=== PATIENT | male | born 1945 | race Caucasian/White ===

== ENCOUNTER 2017-01-18 02:51 | Emergency (ER) | payer BC, OTHER ==
[~2017-01-18] VITALS: Ht 170.2 cm; Wt 104.3 kg
[2017-01-18 02:51] VITALS: BP_SYST 161
[~2017-01-18 02:51] MED LIST: ALBU8.5H8 INH; AMLO2.5T2 PO; BUSP10TA3 PO; CLOP75TA2 PO; GABA300S PO; GLIP2.5T3 PO; LEVO500T20 PO; LISI-209 PO; METH4TAB3 PO; METO25TA3 PO; TEMA30CA5 PO; TIZA4TAB11 PO
[2017-01-18] MEDS ORDERED: TRAZ-123 PO (03:17)
[2017-01-18] MEDS ORDERED: LOSA25TA3 PO (03:17)
[2017-01-18] MEDS ORDERED: PRAV40TA PO (03:17)
[2017-01-18] MEDS ORDERED: GABA-531 PO (03:17)
[2017-01-18] MEDS ORDERED: NACL 0.9% 1,000 ML IV ONE (03:53)
[2017-01-18] MEDS ORDERED: ALBUTEROL SULFATE 0.083% 2.5 MG/3 ML VIAL.NEB IH ONE (04:00)
[2017-01-18] MEDS ORDERED: IPRATROPIUM BROM 0.5 MG/2.5 ML VIAL.NEB (ATROVENT) IH ONE (04:00)
[2017-01-18 04:43] LABS: BASOPHILS # (AUTO) 0.1 K/uL (0.0-0.2); BASOPHILS % (AUTO) 1.2 % (0.0-2.0); EOSINOPHILS # (AUTO) 0.3 K/uL (0.0-0.4); EOSINOPHILS % (AUTO) 3.3 % (0.0-4.0); HEMATOCRIT 39.5 % (36-54); HEMOGLOBIN 13.1 g/dL (14.0-18.0); LYMPHOCYTES # (AUTO) 1.9 K/uL (1.0-5.5); LYMPHOCYTES % (AUTO) 18.9 % (20.5-51.5); MEAN CORPUSCULAR HEMOGLOBIN 28 pg (27-31); MEAN CORPUSCULAR HGB CONC 33 % (32-36); MEAN CORPUSCULAR VOLUME 84 fL (79.0-98.0); MONOCYTES # (AUTO) 0.5 K/uL (0.0-1.0); MONOCYTES % (AUTO) 4.6 % (1.7-9.3); NEUTROPHILS # (AUTO) 7.3 K/uL (1.8-7.7); PLATELET COUNT (AUTO) 202 K/uL (130-430); RED BLOOD CELL COUNT(AUTO) 4.69 MIL/uL (4.2-6.2); RED CELL DISTRIBUTION WIDTH 12.9 % (9.0-15.0); WHITE BLOOD COUNT (AUTO) 10.1 K/uL (4.8-10.8)
[2017-01-18 04:55] LABS: ANION GAP 11 (5-15); CALCIUM 8.4 mg/dL (8.4-11.0); CHLORIDE 103 mmol/L (98-107); CREATININE 2.32 mg/dL (0.55-1.30); GLUCOSE 167 mg/dL (70-99); SODIUM SERUM 137 mmol/L (136-145); UREA NITROGEN, BLOOD 25 mg/dL (8-21)
[2017-01-18] MEDS ORDERED: cefTRIAXone 1 GM IVPB PREMIX 50 ML IV ONE (05:00)
[2017-01-18 05:02] LABS: ALANINE AMINOTRANSFERASE 21 U/L (12-78); ALBUMIN 3.5 g/dL (3.4-4.8); ASPARTATE AMINOTRANSFERASE 14 U/L (10-37); TOTAL BILIRUBIN 0.3 mg/dL (0.0-1.0)
[2017-01-18] MEDS ORDERED: AMOXICILLIN 500 MG CAPSULE PO ONE (05:45)
[2017-01-18] MEDS ORDERED: LevALBUTEROL HCL 1.25 MG/0.5 ML *CONC.* VIAL.NEB (XOPENEX CONC.) INH ONE (05:45)
[2017-01-18 06:24] VITALS: BP_SYST 154
== END 2017-01-18 06:05 | disposition home or self-care (01) ==
LOC: SED 02:51
DX: R06.02 Shortness of breath (principal); E11.9 Type 2 diabetes mellitus without complications; I10 Essential (primary) hypertension; Z86.73 Personal history of transient ischemic attack (TIA), and cerebral infarction without residual deficits; Z79.899 Other long term (current) drug therapy
CPT/HCPCS: 36415; 71010; 80053; 83605; 83880; 84484; 85025; 87040; 93005; 96361; 96365; 99285; J0696; J7030

== ENCOUNTER 2017-01-18 23:21 | Inpatient (IN) | payer OTHER ==
[~2017-01-18] VITALS: Ht 170.2 cm; Wt 88.0 kg
[~2017-01-18 23:21] MED LIST changes: +GABA-531 PO; +LOSA25TA3 PO; +PRAV40TA PO; +TRAZ-123 PO
[2017-01-18 23:22] VITALS: BP_SYST 165
[2017-01-18] MEDS ORDERED: IPRATROPIUM BROM 0.5 MG/2.5 ML VIAL.NEB (ATROVENT) IH ONE (23:45)
[2017-01-18] MEDS ORDERED: methylPREDNISolone SOD SUCC/PF 62.5 MG/ML VIAL IVP ONE (23:45)
[2017-01-18] MEDS ORDERED: MAGNESIUM SULFATE 1 GM in NS 50 ML IV ONE (23:45)
[2017-01-18] MEDS ORDERED: ALBUTEROL SULFATE 0.083% 2.5 MG/3 ML VIAL.NEB IH ONE (23:45)
[2017-01-19] VITALS (8 sets, daily range): BP systolic 103–143
[2017-01-19 00:12] LABS: BASOPHILS # (AUTO) 0.1 K/uL (0.0-0.2); BASOPHILS % (AUTO) 1.6 % (0.0-2.0); EOSINOPHILS # (AUTO) 0.4 K/uL (0.0-0.4); EOSINOPHILS % (AUTO) 5.1 % (0.0-4.0); HEMATOCRIT 40.8 % (36-54); HEMOGLOBIN 13.4 g/dL (14.0-18.0); LYMPHOCYTES # (AUTO) 0.9 K/uL (1.0-5.5); LYMPHOCYTES % (AUTO) 11.2 % (20.5-51.5); MEAN CORPUSCULAR HEMOGLOBIN 28 pg (27-31); MEAN CORPUSCULAR HGB CONC 33 % (32-36); MEAN CORPUSCULAR VOLUME 85 fL (79.0-98.0); MONOCYTES # (AUTO) 0.4 K/uL (0.0-1.0); NEUTROPHILS % (AUTO) 77.1 % (40.0-70.0); PLATELET COUNT (AUTO) 199 K/uL (130-430); RED BLOOD CELL COUNT(AUTO) 4.82 MIL/uL (4.2-6.2); WHITE BLOOD COUNT (AUTO) 7.8 K/uL (4.8-10.8)
[2017-01-19] MEDS ORDERED: cefTRIAXone 2 GM VIAL ONE (00:12)
[2017-01-19] MEDS ORDERED: FUROSEMIDE 40 MG/4 ML VIAL IVP ONE (00:15)
[2017-01-19 00:36] LABS: PROTHROMBIN TIME 10.6 SECS (9.5-12.5)
[2017-01-19] MEDS ORDERED: MAGNESIUM SULFATE 1 GM/2 ML VIAL ONE (00:58)
[2017-01-19] MEDS ORDERED: cefTRIAXone 1 GM IVPB PREMIX 50 ML IV ONE (01:15)
[2017-01-19 01:16] LABS: BILIRUBIN,URINE NEGATIVE (NEGATIVE); BLOOD, URINE 1+ (NEGATIVE); CLARITY/URINE CLEAR (CLEAR); COLOR,URINE YELLOW (YELLOW); GLUCOSE,URINE TRACE (NEGATIVE); KETONES,URINE NEGATIVE (NEGATIVE); LEUKOCYTE ESTERASE ,URINE NEGATIVE (NEGATIVE); NITRITE, URINE NEGATIVE (NEGATIVE); PH,URINE 5.5 (5.0-8.0); PROTEIN URINE 3+ (NEGATIVE); UROBILINOGEN,URINE 0.2 (0.2-1.0)
[2017-01-19 01:17] LABS: ANION GAP 11 (5-15); CALCIUM 8.2 mg/dL (8.4-11.0); CHLORIDE 101 mmol/L (98-107); CREATININE 2.15 mg/dL (0.55-1.30); GLUCOSE 202 mg/dL (70-99); POTASSIUM 4.4 mmol/L (3.5-5.1); SODIUM SERUM 132 mmol/L (136-145); UREA NITROGEN, BLOOD 21 mg/dL (8-21)
[2017-01-19 01:21] LABS: ALANINE AMINOTRANSFERASE 17 U/L (12-78); ALBUMIN 3.2 g/dL (3.4-4.8); ASPARTATE AMINOTRANSFERASE 14 U/L (10-37); TOTAL BILIRUBIN 0.2 mg/dL (0.0-1.0)
[2017-01-19 01:30] LABS: BACTERIA,URINE RARE /HPF (None Seen); RBC,URINE 0-3 /HPF (0-3); WBC,URINE 0-3 /HPF (0-3)
[2017-01-19] MEDS ORDERED: FLU VACC QS 2017-18(36MOS+)/PF 0.5 ML/SYR SYRINGE I.M. PRN (02:45)
[2017-01-19] MEDS ORDERED: FUROSEMIDE 20 MG/2 ML VIAL IVP SCH (09:00)
[2017-01-19] MEDS ORDERED: DEXTROSE 50% JECT 50 ML DISP.SYRIN IVP PRN (10:30)
[2017-01-19] MEDS ORDERED: IPRATROPIUM BROM 0.5 MG/2.5 ML VIAL.NEB (ATROVENT) INH PRN (10:30)
[2017-01-19] MEDS: AZITHROMYCIN 500 MG in NS 250 ML IV SCH ×2 (10:30→11:24)
[2017-01-19] MEDS ORDERED: methylPREDNISolone SOD SUCC/PF 62.5 MG/ML VIAL IVP ONE (11:00)
[2017-01-19] MEDS: IPRATROPIUM BROM 0.5 MG/2.5 ML VIAL.NEB (ATROVENT) INH SCH ×4 (11:14→22:30)
[2017-01-19] MEDS: ALBUTEROL SULFATE 0.083% 2.5 MG/3 ML VIAL.NEB INH SCH ×4 (11:14→22:30)
[2017-01-19] MEDS: ENOXAPARIN SODIUM 40 MG/0.4 ML SYRINGE SUBCUT SCH (12:15)
[2017-01-19] MEDS: INSULIN REGULAR, HUMAN 100 UNITS/ML, 10 ML VIAL (novoLIN R) SUBCUT PRN ×2 (12:16→17:22)
[2017-01-19] MEDS: guaiFENesin/D-METHORPHAN HB 118 ML SUGAR FREE PO PRN ×2 (12:40→17:20)
[2017-01-19] MEDS: methylPREDNISolone SOD SUCC/PF 62.5 MG/ML VIAL IVP SCH ×2 (14:58→21:21)
[2017-01-19] MEDS: traZODone HCL 50 MG TABLET (DESYREL) PO SCH (21:21)
[2017-01-19] MEDS: cefTRIAXone 1 GM IVPB PREMIX 50 ML IV SCH (21:22)
[2017-01-19] MEDS: TEMAZEPAM 15 MG CAPSULE PO PRN (22:36)
[2017-01-20] MEDS: INSULIN REGULAR, HUMAN 100 UNITS/ML, 10 ML VIAL (novoLIN R) SUBCUT PRN ×5 (00:01→23:42)
[2017-01-20] MEDS: guaiFENesin/D-METHORPHAN HB 118 ML SUGAR FREE PO PRN ×2 (00:45→16:32)
[2017-01-20] MEDS: IPRATROPIUM BROM 0.5 MG/2.5 ML VIAL.NEB (ATROVENT) INH SCH ×6 (03:00→23:00)
[2017-01-20] MEDS: ALBUTEROL SULFATE 0.083% 2.5 MG/3 ML VIAL.NEB INH SCH ×6 (03:00→23:00)
[2017-01-20 03:37] VITALS: BP_SYST 135
[2017-01-20] MEDS: methylPREDNISolone SOD SUCC/PF 62.5 MG/ML VIAL IVP SCH ×3 (05:34→22:56)
[2017-01-20 08:30] VITALS: BP_SYST 108
[2017-01-20] MEDS ORDERED: FUROSEMIDE 20 MG/2 ML VIAL IVP SCH (09:00)
[2017-01-20] MEDS: ENOXAPARIN SODIUM 40 MG/0.4 ML SYRINGE SUBCUT SCH (09:03)
[2017-01-20] MEDS: AZITHROMYCIN 500 MG in NS 250 ML IV SCH (11:28)
[2017-01-20] MEDS: ALBUTEROL SULFATE 0.083% 2.5 MG/3 ML VIAL.NEB INH PRN ×2 (13:23→19:59)
[2017-01-20] MEDS ORDERED: busPIRone HCL 5 MG TABLET PO PRN (14:45)
[2017-01-20 16:54] VITALS: BP_SYST 112
[2017-01-20 20:00] VITALS: BP_SYST 123
[2017-01-20] MEDS: cefTRIAXone 1 GM IVPB PREMIX 50 ML IV SCH (20:41)
[2017-01-20] MEDS: traZODone HCL 50 MG TABLET (DESYREL) PO SCH (20:42)
[2017-01-20] MEDS: TEMAZEPAM 15 MG CAPSULE PO PRN (20:43)
[2017-01-20 23:18] VITALS: BP_SYST 139
[2017-01-21] MEDS: ALBUTEROL SULFATE 0.083% 2.5 MG/3 ML VIAL.NEB INH SCH ×4 (03:00→23:00)
[2017-01-21] MEDS: IPRATROPIUM BROM 0.5 MG/2.5 ML VIAL.NEB (ATROVENT) INH SCH ×4 (03:00→23:00)
[2017-01-21 03:46] VITALS: BP_SYST 130
[2017-01-21] MEDS: methylPREDNISolone SOD SUCC/PF 62.5 MG/ML VIAL IVP SCH ×3 (06:52→21:17)
[2017-01-21] MEDS: INSULIN REGULAR, HUMAN 100 UNITS/ML, 10 ML VIAL (novoLIN R) SUBCUT PRN ×3 (06:58→17:16)
[2017-01-21 08:30] LABS: HEMATOCRIT 37.3 % (36-54); HEMOGLOBIN 12.2 g/dL (14.0-18.0); MEAN CORPUSCULAR HEMOGLOBIN 28 pg (27-31); MEAN CORPUSCULAR HGB CONC 33 % (32-36); MEAN CORPUSCULAR VOLUME 85 fL (79.0-98.0); PLATELET COUNT (AUTO) 241 K/uL (130-430); RED CELL DISTRIBUTION WIDTH 13.1 % (9.0-15.0); WHITE BLOOD COUNT (AUTO) 13.4 K/uL (4.8-10.8)
[2017-01-21] MEDS: ENOXAPARIN SODIUM 40 MG/0.4 ML SYRINGE SUBCUT SCH (08:42)
[2017-01-21 08:45] VITALS: BP_SYST 134
[2017-01-21 08:45] LABS: ALANINE AMINOTRANSFERASE 15 U/L (12-78); ALBUMIN 2.8 g/dL (3.4-4.8); ANION GAP 11 (5-15); ASPARTATE AMINOTRANSFERASE 11 U/L (10-37); CALCIUM 8.7 mg/dL (8.4-11.0); CHLORIDE 103 mmol/L (98-107); CREATININE 2.56 mg/dL (0.55-1.30); GLUCOSE 280 mg/dL (70-99); POTASSIUM 4.4 mmol/L (3.5-5.1); SODIUM SERUM 135 mmol/L (136-145); TOTAL BILIRUBIN 0.2 mg/dL (0.0-1.0); UREA NITROGEN, BLOOD 36 mg/dL (8-21)
[2017-01-21 09:23] LABS: ATYPICAL LYMPHOCYTES % 0 % (0-0); BAND % (MANUAL) 0 % (0-6); BASOPHILS % (MANUAL) 0 % (0-2); EOSINOPHILS % (MANUAL) 0 % (0-7); LYMPHOCYTES % (MANUAL) 4 % (20-46); MONOCYTES % (MANUAL) 0 % (0-11)
[2017-01-21] MEDS: AZITHROMYCIN 500 MG in NS 250 ML IV SCH (11:10)
[2017-01-21 12:07] VITALS: BP_SYST 108
[2017-01-21] MEDS ORDERED: NACL 0.9% 1,000 ML IV SCH (16:29)
[2017-01-21 16:55] VITALS: BP_SYST 139
[2017-01-21 19:30] VITALS: BP_SYST 145
[2017-01-21] MEDS: cefTRIAXone 1 GM IVPB PREMIX 50 ML IV SCH (21:15)
[2017-01-21] MEDS: traZODone HCL 50 MG TABLET (DESYREL) PO SCH (21:17)
[2017-01-21] MEDS: TEMAZEPAM 15 MG CAPSULE PO PRN (21:18)
[2017-01-22] VITALS (7 sets, daily range): BP systolic 119–143
[2017-01-22] MEDS: INSULIN REGULAR, HUMAN 100 UNITS/ML, 10 ML VIAL (novoLIN R) SUBCUT PRN ×4 (00:10→17:39)
[2017-01-22] MEDS: ALBUTEROL SULFATE 0.083% 2.5 MG/3 ML VIAL.NEB INH SCH ×4 (03:00→15:27)
[2017-01-22] MEDS: IPRATROPIUM BROM 0.5 MG/2.5 ML VIAL.NEB (ATROVENT) INH SCH ×3 (03:00→11:18)
[2017-01-22] MEDS: methylPREDNISolone SOD SUCC/PF 62.5 MG/ML VIAL IVP SCH (06:39)
[2017-01-22 06:51] LABS: ANION GAP 8 (5-15); CALCIUM 8.6 mg/dL (8.4-11.0); CHLORIDE 105 mmol/L (98-107); CREATININE 2.22 mg/dL (0.55-1.30); GLUCOSE 232 mg/dL (70-99); POTASSIUM 4.4 mmol/L (3.5-5.1); SODIUM SERUM 136 mmol/L (136-145); UREA NITROGEN, BLOOD 36 mg/dL (8-21)
[2017-01-22] MEDS ORDERED: HEPARIN SODIUM,PORCINE 5000 UNITS/ML VIAL SUBCUT SCH (09:00)
[2017-01-22] MEDS: AZITHROMYCIN 500 MG in NS 250 ML IV SCH (09:14)
[2017-01-22] MEDS ORDERED: FLU VACC QS 2017-18(36MOS+)/PF 0.5 ML/SYR SYRINGE I.M. PRN (12:45)
[2017-01-22] MEDS ORDERED: methylPREDNISolone SOD SUCC/PF 62.5 MG/ML VIAL IVP SCH (14:00)
[2017-01-22] MEDS ORDERED: ROBAC PO (18:39)
[2017-01-22] MEDS ORDERED: BUDESONIDE 0.5 MG/2 ML AMPUL.NEB INH SCH (21:00)
== END 2017-01-22 19:42 | disposition home or self-care (01) | DRG 871 ==
LOC: SED 23:21 → STU 01-19 01:15
PROVIDERS: ADMIT Internal Medicine Hospice and Palliative Medicine; ATTEND Internal Medicine Hospice and Palliative Medicine
DX: A41.9 Sepsis, unspecified organism (principal); J18.9 Pneumonia, unspecified organism; E11.22 Type 2 diabetes mellitus with diabetic chronic kidney disease; N18.3 Chronic kidney disease, stage 3 (moderate); J44.0 Chronic obstructive pulmonary disease with (acute) lower respiratory infection; G81.91 Hemiplegia, unspecified affecting right dominant side; J44.1 Chronic obstructive pulmonary disease with (acute) exacerbation; N28.9 Disorder of kidney and ureter, unspecified; M62.3 Immobility syndrome (paraplegic); E78.5 Hyperlipidemia, unspecified; F17.210 Nicotine dependence, cigarettes, uncomplicated; I12.9 Hypertensive chronic kidney disease with stage 1 through stage 4 chronic kidney disease, or unspecified chronic kidney disease; Z87.820 Personal history of traumatic brain injury; Z99.3 Dependence on wheelchair
CPT/HCPCS: 36415; 36600; 71010; 76770; 80048; 80053; 81000-TC; 82550-TC; 82803-TC; 82962; 83605; 83735-TC; 83880; 84484; 85007; 85025; 85027; 85610-TC; 85730-TC; 87040-TC; 87081; 93306; 94640; 94760; 96365; 96367; 96375; 99285; J0456; J0696; J1644; J1650; J1815; J1940; J2930; J3475; J7030; J7050; J7060; Q2037

== ENCOUNTER 2018-03-13 15:32 | Emergency (ER) | payer OTHER ==
[~2018-03-13] VITALS: Ht 170.2 cm; Wt 97.5 kg
[~2018-03-13 15:32] MED LIST changes: +AZIT500T3 PO; +ROBAC PO
[2018-03-13 15:38] VITALS: BP_SYST 126
[2018-03-13] MEDS ORDERED: NACL 0.9% 1,000 ML IV ONE (15:56)
[2018-03-13] MEDS ORDERED: NS 1000 ML IV.SOLN IV ONE (16:00)
[2018-03-13] MEDS ORDERED: ACETAMINOPHEN 120 MG SUPP.RECT RC ONE (16:00)
[2018-03-13] MEDS ORDERED: cefTRIAXone 1 GM IVPB PREMIX 50 ML IV ONE (16:15)
[2018-03-13 16:33] LABS: BASOPHILS % (AUTO) 0.2 % (0.0-2.0); EOSINOPHILS % (AUTO) 0.1 % (0.0-4.0); HEMOGLOBIN 12.3 g/dL (14.0-18.0); LYMPHOCYTES # (AUTO) 0.5 K/uL (1.0-5.5); LYMPHOCYTES % (AUTO) 5.1 % (20.5-51.5); MEAN CORPUSCULAR HEMOGLOBIN 27 pg (27-31); MEAN CORPUSCULAR HGB CONC 32 % (32-36); MEAN CORPUSCULAR VOLUME 86 fL (79.0-98.0); MONOCYTES # (AUTO) 0.4 K/uL (0.0-1.0); MONOCYTES % (AUTO) 3.5 % (1.7-9.3); NEUTROPHILS # (AUTO) 9.1 K/uL (1.8-7.7); NEUTROPHILS % (AUTO) 91.1 % (40.0-70.0); PLATELET COUNT (AUTO) 270 K/uL (130-430); RED BLOOD CELL COUNT(AUTO) 4.53 MIL/uL (4.2-6.2); RED CELL DISTRIBUTION WIDTH 13.5 % (9.0-15.0)
[2018-03-13 16:58] LABS: ANION GAP 11 (5-15); CALCIUM 8.9 mg/dL (8.4-11.0); CHLORIDE 101 mmol/L (98-107); CREATININE 3.04 mg/dL (0.55-1.30); GLUCOSE 185 mg/dL (70-99); POTASSIUM 4.4 mmol/L (3.5-5.1); SODIUM SERUM 133 mmol/L (136-145); UREA NITROGEN, BLOOD 34 mg/dL (8-21)
[2018-03-13 17:00] LABS: INR 1.1 (0.80-1.20)
[2018-03-13 17:02] LABS: ALANINE AMINOTRANSFERASE 14 U/L (12-78); ALBUMIN 3.1 g/dL (3.4-4.8); AMYLASE 72 U/L (0-100); ASPARTATE AMINOTRANSFERASE 12 U/L (10-37); LIPASE 100 U/L (73-393); TOTAL BILIRUBIN 0.4 mg/dL (0.0-1.0)
[2018-03-13 19:10] VITALS: BP_SYST 137
== END 2018-03-13 19:10 | disposition home or self-care (01) ==
LOC: SED 15:32
DX: J40 Bronchitis, not specified as acute or chronic (principal); R50.9 Fever, unspecified; Z86.73 Personal history of transient ischemic attack (TIA), and cerebral infarction without residual deficits; E11.9 Type 2 diabetes mellitus without complications; I10 Essential (primary) hypertension; Z79.899 Other long term (current) drug therapy
CPT/HCPCS: 36415; 71045; 80053; 82150; 82550; 83605; 83690; 84484; 85025; 85610; 85730; 87040; 96365; 99285; J0696; J7030

== ENCOUNTER 2018-07-10 01:47 | Emergency (ER) | payer OTHER ==
[~2018-07-10 01:47] MED LIST changes: -TRAZ-123 PO; +TRAZ-218 PO
[2018-07-10 02:47] VITALS: BP_SYST 141
== END 2018-07-10 02:47 | disposition home or self-care (01) ==
LOC: SED 01:47
DX: R05 Cough (principal); E11.9 Type 2 diabetes mellitus without complications; I10 Essential (primary) hypertension; Z86.73 Personal history of transient ischemic attack (TIA), and cerebral infarction without residual deficits; Z79.899 Other long term (current) drug therapy
CPT/HCPCS: 99283

== ENCOUNTER 2019-02-02 14:47 | Outpatient (CLI) | payer OTHER ==
[~2019-02-02 14:47] MED LIST changes: -TRAZ-218 PO; +TRAZ-250 PO
== END 2019-02-02 20:56 | disposition home or self-care (01) ==
LOC: SRD 14:47
PROVIDERS: ATTEND Internal Medicine
DX: J44.9 Chronic obstructive pulmonary disease, unspecified (principal)
CPT/HCPCS: 71045

== ENCOUNTER 2019-03-01 21:55 | Inpatient (IN) | payer OTHER ==
[~2019-03-01] VITALS: Ht 170.2 cm; Wt 85.7 kg
[2019-03-01 21:55] VITALS: BP_SYST 165
[2019-03-01] MEDS ORDERED: AZITHROMYCIN 500 MG in D5W 250 ML IV ONE (22:45)
[2019-03-01] MEDS ORDERED: NS 1000 ML IV.SOLN IV ONE (22:45)
[2019-03-01] MEDS ORDERED: cefTRIAXone 1 GM IVPB PREMIX 50 ML IV ONE (22:45)
[2019-03-01 22:57] LABS: HEMATOCRIT 41.7 % (36-54); HEMOGLOBIN 13.9 g/dL (14.0-18.0); MEAN CORPUSCULAR HEMOGLOBIN 29 pg (27-31); MEAN CORPUSCULAR HGB CONC 33 % (32-36); MEAN CORPUSCULAR VOLUME 87 fL (79.0-98.0); PLATELET COUNT (AUTO) 284 K/uL (130-430); RED BLOOD CELL COUNT(AUTO) 4.81 MIL/uL (4.2-6.2); RED CELL DISTRIBUTION WIDTH 14.3 % (9.0-15.0); WHITE BLOOD COUNT (AUTO) 8.9 K/uL (4.8-10.8)
[2019-03-01 23:13] LABS: ATYPICAL LYMPHOCYTES % 0 % (0-0); BAND % (MANUAL) 14 % (0-6); BASOPHILS % (MANUAL) 0 % (0-2); EOSINOPHILS % (MANUAL) 2 % (0-7); LYMPHOCYTES % (MANUAL) 10 % (20-46); METAMYELOCYTES % 1 % (0-0); MONOCYTES % (MANUAL) 4 % (0-11); MYELOCYTES % 0 % (0-0)
[2019-03-01] MEDS ORDERED: AZITHROMYCIN 500 MG/VIAL (ZITHROMAX) IV ONE (23:15)
[2019-03-01] MEDS ORDERED: IBUPROFEN 100 MG/5 ML UDC ONE (23:18)
[2019-03-01] MEDS ORDERED: IPRATROPIUM/ALBUTEROL SULFATE 3 ML AMPUL.NEB (DUONEB) INH ONE (23:30)
[2019-03-01 23:38] LABS: ANION GAP 6 (5-15); CHLORIDE 104 mmol/L (98-107); CREATININE 3.24 mg/dL (0.55-1.30); GLUCOSE 125 mg/dL (70-99); POTASSIUM 4.9 mmol/L (3.5-5.1); SODIUM SERUM 136 mmol/L (136-145); UREA NITROGEN, BLOOD 39 mg/dL (8-21)
[2019-03-01 23:44] LABS: ALANINE AMINOTRANSFERASE 14 U/L (12-78); ALBUMIN 3.1 g/dL (3.4-4.8); ASPARTATE AMINOTRANSFERASE 9 U/L (10-37); TOTAL BILIRUBIN 0.2 mg/dL (0.0-1.0)
[2019-03-02] VITALS (7 sets, daily range): BP systolic 87–156
[2019-03-02] MEDS ORDERED: OSELTAMIVIR PHOSPHATE 6 MG/1 ML, 60 ML SUSP PO ONE (01:30)
[2019-03-02] MEDS ORDERED: BACL10TA PO (01:37)
[2019-03-02] MEDS ORDERED: CALC0.258 PO (01:37)
[2019-03-02] MEDS ORDERED: OSELTAMIVIR PHOSPHATE 6 MG/1 ML, 60 ML SUSP ONE (01:47)
[2019-03-02] MEDS ORDERED: ONDANSETRON HCL 4 MG/2 ML VIAL IVP PRN (04:15)
[2019-03-02] MEDS ORDERED: ALBUTEROL SULFATE 0.083% 2.5 MG/3 ML VIAL.NEB INH PRN (04:15)
[2019-03-02] MEDS: NACL 0.9% 1,000 ML IV SCH ×2 (05:02→16:48)
[2019-03-02 07:30] LABS: HEMATOCRIT 35.4 % (36-54); HEMOGLOBIN 11.6 g/dL (14.0-18.0); MEAN CORPUSCULAR HEMOGLOBIN 29 pg (27-31); MEAN CORPUSCULAR HGB CONC 33 % (32-36); MEAN CORPUSCULAR VOLUME 87 fL (79.0-98.0); PLATELET COUNT (AUTO) 214 K/uL (130-430); RED BLOOD CELL COUNT(AUTO) 4.07 MIL/uL (4.2-6.2); WHITE BLOOD COUNT (AUTO) 12.9 K/uL (4.8-10.8)
[2019-03-02 07:38] LABS: ALANINE AMINOTRANSFERASE 9 U/L (12-78); ALBUMIN 2.5 g/dL (3.4-4.8); ANION GAP 7 (5-15); ASPARTATE AMINOTRANSFERASE 10 U/L (10-37); CALCIUM 8.1 mg/dL (8.4-11.0); CHLORIDE 108 mmol/L (98-107); CREATININE 3.17 mg/dL (0.55-1.30); GLUCOSE 130 mg/dL (70-99); POTASSIUM 4.6 mmol/L (3.5-5.1); SODIUM SERUM 137 mmol/L (136-145); TOTAL BILIRUBIN 0.3 mg/dL (0.0-1.0); UREA NITROGEN, BLOOD 38 mg/dL (8-21)
[2019-03-02] MEDS: BACLOFEN 10 MG TABLET PO SCH (08:43)
[2019-03-02] MEDS: CLOPIDOGREL BISULFATE 75 MG TABLET PO SCH (08:43)
[2019-03-02] MEDS: ATORVASTATIN 10 MG TABLET PO SCH (08:43)
[2019-03-02] MEDS: busPIRone HCL 5 MG TABLET PO SCH (08:43)
[2019-03-02] MEDS: amLODIPine BESYLATE 5 MG TABLET PO SCH (08:44)
[2019-03-02] MEDS: METOPROLOL SUCCINATE 25 MG TAB.SR.24H (TOPROL XL) PO SCH ×2 (08:44→20:09)
[2019-03-02] MEDS ORDERED: OSELTAMIVIR PHOSPHATE 75 MG CAPSULE PO SCH (09:00)
[2019-03-02] MEDS ORDERED: tiZANidine HCL 4 MG TABLET PO SCH (09:00)
[2019-03-02] MEDS ORDERED: methylPREDNISolone SOD SUCC 40 MG/ML VIAL IVP ONE (09:45)
[2019-03-02 12:20] LABS: BAND % (MANUAL) 19 % (0-6); BASOPHILS % (MANUAL) 0 % (0-2); EOSINOPHILS % (MANUAL) 0 % (0-7); LYMPHOCYTES % (MANUAL) 8 % (20-46); MONOCYTES % (MANUAL) 7 % (0-11)
[2019-03-02 18:04] LABS: BILIRUBIN,URINE NEGATIVE (NEGATIVE); BLOOD, URINE 1+ (NEGATIVE); CLARITY/URINE CLEAR (CLEAR); COLOR,URINE YELLOW (YELLOW); GLUCOSE,URINE 3+ (NEGATIVE); KETONES,URINE NEGATIVE (NEGATIVE); NITRITE, URINE NEGATIVE (NEGATIVE); PROTEIN URINE 2+ (NEGATIVE); UROBILINOGEN,URINE 0.2 (0.2-1.0)
[2019-03-02 18:27] LABS: LEUKOCYTE ESTERASE ,URINE TRACE (NEGATIVE)
[2019-03-02 18:30] LABS: BACTERIA,URINE FEW /HPF (None Seen); MUCUS,URINE None Seen /LPF (None Seen); RBC,URINE 0-3 /HPF (0-3)
[2019-03-02] MEDS: GABAPENTIN 300 MG CAPSULE PO SCH (20:08)
[2019-03-02] MEDS: traZODone HCL 50 MG TABLET (DESYREL) PO SCH (20:08)
[2019-03-02] MEDS: cefTRIAXone 1 GM IVPB PREMIX 50 ML IV SCH (20:08)
[2019-03-02] MEDS: methylPREDNISolone SOD SUCC 40 MG/ML VIAL IVP SCH (20:08)
[2019-03-02] MEDS: AZITHROMYCIN 500 MG in NS 250 ML IV SCH (20:08)
[2019-03-02] MEDS: TEMAZEPAM 15 MG CAPSULE PO PRN (20:09)
[2019-03-02] MEDS: ALBUTEROL SULFATE 0.083% 2.5 MG/3 ML VIAL.NEB INH SCH (20:53)
[2019-03-02] MEDS: IPRATROPIUM BROM 0.5 MG/2.5 ML VIAL.NEB (ATROVENT) INH SCH (20:53)
[2019-03-03 00:02] VITALS: BP_SYST 132
[2019-03-03] MEDS: IPRATROPIUM BROM 0.5 MG/2.5 ML VIAL.NEB (ATROVENT) INH SCH ×4 (02:06→19:12)
[2019-03-03] MEDS: ALBUTEROL SULFATE 0.083% 2.5 MG/3 ML VIAL.NEB INH SCH ×4 (02:06→19:13)
[2019-03-03] MEDS: NACL 0.9% 1,000 ML IV SCH ×2 (06:01→18:08)
[2019-03-03 07:08] LABS: ANION GAP 8 (5-15); CALCIUM 7.6 mg/dL (8.4-11.0); CHLORIDE 107 mmol/L (98-107); CREATININE 3.06 mg/dL (0.55-1.30); GLUCOSE 266 mg/dL (70-99); HEMATOCRIT 30.9 % (36-54); HEMOGLOBIN 10.1 g/dL (14.0-18.0); LYMPHOCYTES # (AUTO) 0.6 K/uL (1.0-5.5); LYMPHOCYTES % (AUTO) 4.5 % (20.5-51.5); MEAN CORPUSCULAR HEMOGLOBIN 28 pg (27-31); MEAN CORPUSCULAR HGB CONC 33 % (32-36); MEAN CORPUSCULAR VOLUME 86 fL (79.0-98.0); MONOCYTES # (AUTO) 0.1 K/uL (0.0-1.0); MONOCYTES % (AUTO) 1.1 % (1.7-9.3); NEUTROPHILS # (AUTO) 12.5 K/uL (1.8-7.7); NEUTROPHILS % (AUTO) 94.4 % (40.0-70.0); PLATELET COUNT (AUTO) 218 K/uL (130-430); POTASSIUM 4.4 mmol/L (3.5-5.1); RED BLOOD CELL COUNT(AUTO) 3.58 MIL/uL (4.2-6.2); RED CELL DISTRIBUTION WIDTH 13.8 % (9.0-15.0); SODIUM SERUM 135 mmol/L (136-145); UREA NITROGEN, BLOOD 39 mg/dL (8-21); WHITE BLOOD COUNT (AUTO) 13.3 K/uL (4.8-10.8)
[2019-03-03 07:48] VITALS: BP_SYST 119
[2019-03-03] MEDS: amLODIPine BESYLATE 5 MG TABLET PO SCH (08:28)
[2019-03-03] MEDS: ATORVASTATIN 10 MG TABLET PO SCH (08:29)
[2019-03-03] MEDS: busPIRone HCL 5 MG TABLET PO SCH (08:29)
[2019-03-03] MEDS: BACLOFEN 10 MG TABLET PO SCH (08:29)
[2019-03-03] MEDS: METOPROLOL SUCCINATE 25 MG TAB.SR.24H (TOPROL XL) PO SCH ×2 (08:29→20:01)
[2019-03-03] MEDS: methylPREDNISolone SOD SUCC 40 MG/ML VIAL IVP SCH ×2 (08:30→20:03)
[2019-03-03] MEDS: CLOPIDOGREL BISULFATE 75 MG TABLET PO SCH (08:30)
[2019-03-03] MEDS: OSELTAMIVIR PHOSPHATE 6 MG/1 ML, 60 ML SUSP PO SCH (09:58)
[2019-03-03 11:09] VITALS: BP_SYST 135
[2019-03-03] MEDS ORDERED: guaiFENesin/DEXTROMETHORPHAN 10 ML UDC PO PRN (12:45)
[2019-03-03 15:38] VITALS: BP_SYST 133
[2019-03-03 20:00] VITALS: BP_SYST 144
[2019-03-03] MEDS: cefTRIAXone 1 GM IVPB PREMIX 50 ML IV SCH (20:00)
[2019-03-03] MEDS: GABAPENTIN 300 MG CAPSULE PO SCH (20:00)
[2019-03-03] MEDS: AZITHROMYCIN 500 MG in NS 250 ML IV SCH (20:00)
[2019-03-03] MEDS: guaiFENesin ER 600 MG TAB PO SCH (20:00)
[2019-03-03] MEDS: traZODone HCL 50 MG TABLET (DESYREL) PO SCH (20:01)
[2019-03-03] MEDS: TEMAZEPAM 15 MG CAPSULE PO PRN (20:11)
[2019-03-04 00:26] VITALS: BP_SYST 132
[2019-03-04] MEDS: NACL 0.9% 1,000 ML IV SCH ×2 (05:37→12:12)
[2019-03-04 06:38] LABS: BASOPHILS % (AUTO) 0.1 % (0.0-2.0); HEMATOCRIT 30.2 % (36-54); HEMOGLOBIN 10.2 g/dL (14.0-18.0); LYMPHOCYTES # (AUTO) 0.6 K/uL (1.0-5.5); LYMPHOCYTES % (AUTO) 6.3 % (20.5-51.5); MEAN CORPUSCULAR HEMOGLOBIN 29 pg (27-31); MEAN CORPUSCULAR HGB CONC 34 % (32-36); MEAN CORPUSCULAR VOLUME 86 fL (79.0-98.0); MONOCYTES # (AUTO) 0.2 K/uL (0.0-1.0); MONOCYTES % (AUTO) 2.1 % (1.7-9.3); NEUTROPHILS # (AUTO) 8.2 K/uL (1.8-7.7); NEUTROPHILS % (AUTO) 91.5 % (40.0-70.0); PLATELET COUNT (AUTO) 202 K/uL (130-430); RED BLOOD CELL COUNT(AUTO) 3.53 MIL/uL (4.2-6.2); RED CELL DISTRIBUTION WIDTH 14.1 % (9.0-15.0)
[2019-03-04 06:59] LABS: ALANINE AMINOTRANSFERASE 11 U/L (12-78); ALBUMIN 2.4 g/dL (3.4-4.8); ANION GAP 7 (5-15); ASPARTATE AMINOTRANSFERASE 7 U/L (10-37); CALCIUM 7.8 mg/dL (8.4-11.0); CHLORIDE 108 mmol/L (98-107); CREATININE 3.13 mg/dL (0.55-1.30); GLUCOSE 300 mg/dL (70-99); SODIUM SERUM 136 mmol/L (136-145); TOTAL BILIRUBIN 0.1 mg/dL (0.0-1.0); UREA NITROGEN, BLOOD 37 mg/dL (8-21)
[2019-03-04] MEDS: IPRATROPIUM BROM 0.5 MG/2.5 ML VIAL.NEB (ATROVENT) INH SCH ×3 (07:26→20:17)
[2019-03-04] MEDS: ALBUTEROL SULFATE 0.083% 2.5 MG/3 ML VIAL.NEB INH SCH ×3 (07:26→20:17)
[2019-03-04 08:01] VITALS: BP_SYST 128
[2019-03-04] MEDS: busPIRone HCL 5 MG TABLET PO SCH (09:03)
[2019-03-04] MEDS: methylPREDNISolone SOD SUCC 40 MG/ML VIAL IVP SCH ×2 (09:03→21:11)
[2019-03-04] MEDS: METOPROLOL SUCCINATE 25 MG TAB.SR.24H (TOPROL XL) PO SCH ×2 (09:04→21:12)
[2019-03-04] MEDS: CLOPIDOGREL BISULFATE 75 MG TABLET PO SCH (09:04)
[2019-03-04] MEDS: ATORVASTATIN 10 MG TABLET PO SCH (09:04)
[2019-03-04] MEDS: amLODIPine BESYLATE 5 MG TABLET PO SCH (09:04)
[2019-03-04] MEDS: BACLOFEN 10 MG TABLET PO SCH (09:05)
[2019-03-04] MEDS: OSELTAMIVIR PHOSPHATE 6 MG/1 ML, 60 ML SUSP PO SCH (09:05)
[2019-03-04] MEDS: guaiFENesin ER 600 MG TAB PO SCH ×2 (09:05→21:12)
[2019-03-04 12:58] VITALS: BP_SYST 152
[2019-03-04 16:44] VITALS: BP_SYST 153
[2019-03-04] MEDS: HYDROcodone/ACETAMIN 5-325 MG TAB (NORCO/ VICODIN) PO PRN (17:11)
[2019-03-04 20:00] VITALS: BP_SYST 151
[2019-03-04] MEDS: cefTRIAXone 1 GM IVPB PREMIX 50 ML IV SCH (20:14)
[2019-03-04] MEDS: AZITHROMYCIN 500 MG in NS 250 ML IV SCH (21:11)
[2019-03-04] MEDS: traZODone HCL 50 MG TABLET (DESYREL) PO SCH (21:12)
[2019-03-04] MEDS: GABAPENTIN 300 MG CAPSULE PO SCH (21:12)
[2019-03-05 00:41] VITALS: BP_SYST 146
[2019-03-05] MEDS: ALBUTEROL SULFATE 0.083% 2.5 MG/3 ML VIAL.NEB INH SCH ×4 (01:00→20:27)
[2019-03-05] MEDS: IPRATROPIUM BROM 0.5 MG/2.5 ML VIAL.NEB (ATROVENT) INH SCH ×4 (01:00→20:28)
[2019-03-05] MEDS: NACL 0.9% 1,000 ML IV SCH (03:36)
[2019-03-05 07:02] LABS: BASOPHILS % (AUTO) 0.1 % (0.0-2.0); HEMATOCRIT 32.5 % (36-54); HEMOGLOBIN 10.9 g/dL (14.0-18.0); LYMPHOCYTES # (AUTO) 0.5 K/uL (1.0-5.5); LYMPHOCYTES % (AUTO) 6.2 % (20.5-51.5); MEAN CORPUSCULAR HEMOGLOBIN 29 pg (27-31); MEAN CORPUSCULAR HGB CONC 34 % (32-36); MEAN CORPUSCULAR VOLUME 86 fL (79.0-98.0); MONOCYTES # (AUTO) 0.1 K/uL (0.0-1.0); MONOCYTES % (AUTO) 1.7 % (1.7-9.3); NEUTROPHILS # (AUTO) 7.8 K/uL (1.8-7.7); PLATELET COUNT (AUTO) 218 K/uL (130-430); RED CELL DISTRIBUTION WIDTH 13.9 % (9.0-15.0); WHITE BLOOD COUNT (AUTO) 8.5 K/uL (4.8-10.8)
[2019-03-05 07:08] LABS: ALANINE AMINOTRANSFERASE 11 U/L (12-78); ALBUMIN 2.4 g/dL (3.4-4.8); ANION GAP 8 (5-15); ASPARTATE AMINOTRANSFERASE 8 U/L (10-37); CALCIUM 7.7 mg/dL (8.4-11.0); CHLORIDE 108 mmol/L (98-107); CREATININE 3.01 mg/dL (0.55-1.30); GLUCOSE 325 mg/dL (70-99); POTASSIUM 4.8 mmol/L (3.5-5.1); SODIUM SERUM 137 mmol/L (136-145); TOTAL BILIRUBIN 0.1 mg/dL (0.0-1.0); UREA NITROGEN, BLOOD 40 mg/dL (8-21)
[2019-03-05 08:00] VITALS: BP_SYST 148
[2019-03-05] MEDS: OSELTAMIVIR PHOSPHATE 6 MG/1 ML, 60 ML SUSP PO SCH ×2 (10:00→10:20)
[2019-03-05] MEDS: amLODIPine BESYLATE 5 MG TABLET PO SCH ×2 (10:00→10:18)
[2019-03-05] MEDS: METOPROLOL SUCCINATE 25 MG TAB.SR.24H (TOPROL XL) PO SCH ×3 (10:00→22:05)
[2019-03-05] MEDS: guaiFENesin ER 600 MG TAB PO SCH ×3 (10:00→22:05)
[2019-03-05] MEDS: busPIRone HCL 5 MG TABLET PO SCH ×2 (10:00→10:17)
[2019-03-05] MEDS: BACLOFEN 10 MG TABLET PO SCH ×2 (10:00→10:17)
[2019-03-05] MEDS: ATORVASTATIN 10 MG TABLET PO SCH ×2 (10:00→10:17)
[2019-03-05] MEDS: methylPREDNISolone SOD SUCC 40 MG/ML VIAL IVP SCH ×2 (10:17→22:04)
[2019-03-05] MEDS: CLOPIDOGREL BISULFATE 75 MG TABLET PO SCH (10:18)
[2019-03-05 12:30] VITALS: BP_SYST 154
[2019-03-05 16:05] VITALS: BP_SYST 154
[2019-03-05 16:50] VITALS: BP_SYST 144
[2019-03-05] MEDS: HYDROcodone/ACETAMIN 5-325 MG TAB (NORCO/ VICODIN) PO PRN (17:41)
[2019-03-05 20:00] VITALS: BP_SYST 151
[2019-03-05] MEDS: cefTRIAXone 1 GM IVPB PREMIX 50 ML IV SCH (20:23)
[2019-03-05] MEDS: AZITHROMYCIN 500 MG in NS 250 ML IV SCH (21:29)
[2019-03-05] MEDS: GABAPENTIN 300 MG CAPSULE PO SCH (22:05)
[2019-03-05] MEDS: traZODone HCL 50 MG TABLET (DESYREL) PO SCH (22:06)
[2019-03-06] MEDS: ALBUTEROL SULFATE 0.083% 2.5 MG/3 ML VIAL.NEB INH SCH ×4 (01:00→20:44)
[2019-03-06] MEDS: IPRATROPIUM BROM 0.5 MG/2.5 ML VIAL.NEB (ATROVENT) INH SCH ×4 (01:00→20:44)
[2019-03-06 02:09] VITALS: BP_SYST 151
[2019-03-06] MEDS ORDERED: HALOPERIDOL LACTATE 5 MG/ML VIAL IM ONE ×2 (03:30→04:12)
[2019-03-06] MEDS: HYDROcodone/ACETAMIN 5-325 MG TAB (NORCO/ VICODIN) PO PRN (04:45)
[2019-03-06] MEDS: guaiFENesin ER 600 MG TAB PO SCH ×3 (09:19→21:19)
[2019-03-06] MEDS: methylPREDNISolone SOD SUCC 40 MG/ML VIAL IVP SCH (09:19)
[2019-03-06] MEDS: HYDROcodone/ACETAMIN 10-325 MG TAB PO PRN (09:20)
[2019-03-06] MEDS: BACLOFEN 10 MG TABLET PO SCH (09:20)
[2019-03-06] MEDS: ATORVASTATIN 10 MG TABLET PO SCH (09:20)
[2019-03-06] MEDS: METOPROLOL SUCCINATE 25 MG TAB.SR.24H (TOPROL XL) PO SCH ×3 (09:21→21:19)
[2019-03-06] MEDS: amLODIPine BESYLATE 5 MG TABLET PO SCH (09:21)
[2019-03-06] MEDS: CLOPIDOGREL BISULFATE 75 MG TABLET PO SCH (09:21)
[2019-03-06] MEDS: busPIRone HCL 5 MG TABLET PO SCH (09:22)
[2019-03-06] MEDS: OSELTAMIVIR PHOSPHATE 6 MG/1 ML, 60 ML SUSP PO SCH (09:44)
[2019-03-06 10:16] VITALS: BP_SYST 162
[2019-03-06 12:09] LABS: ANION GAP 5 (5-15); CALCIUM 7.8 mg/dL (8.4-11.0); CHLORIDE 108 mmol/L (98-107); CREATININE 2.91 mg/dL (0.55-1.30); GLUCOSE 398 mg/dL (70-99); POTASSIUM 4.9 mmol/L (3.5-5.1); SODIUM SERUM 135 mmol/L (136-145); UREA NITROGEN, BLOOD 43 mg/dL (8-21)
[2019-03-06 12:31] VITALS: BP_SYST 140
[2019-03-06 16:56] VITALS: BP_SYST 159
[2019-03-06 20:00] VITALS: BP_SYST 189
[2019-03-06] MEDS: GABAPENTIN 300 MG CAPSULE PO SCH ×2 (20:05→21:19)
[2019-03-06] MEDS: cefTRIAXone 1 GM IVPB PREMIX 50 ML IV SCH (20:05)
[2019-03-06] MEDS: traZODone HCL 50 MG TABLET (DESYREL) PO SCH ×2 (20:07→21:20)
[2019-03-06] MEDS: PREDNISONE 10 MG TABLET PO SCH ×2 (20:08→21:18)
[2019-03-06] MEDS: HALOPERIDOL LACTATE 5 MG/ML VIAL IM PRN ×2 (20:27→23:27)
[2019-03-06] MEDS: AZITHROMYCIN 500 MG in NS 250 ML IV SCH (21:15)
[2019-03-06] MEDS ORDERED: cloNIDine HCL 0.1 MG TABLET PO PRN (23:45)
[2019-03-07] MEDS: TEMAZEPAM 15 MG CAPSULE PO PRN ×2 (00:18→21:58)
[2019-03-07 00:42] VITALS: BP_SYST 154
[2019-03-07] MEDS: ALBUTEROL SULFATE 0.083% 2.5 MG/3 ML VIAL.NEB INH SCH ×4 (01:00→19:40)
[2019-03-07] MEDS: IPRATROPIUM BROM 0.5 MG/2.5 ML VIAL.NEB (ATROVENT) INH SCH ×4 (01:00→19:40)
[2019-03-07] MEDS: NACL 0.9% 1,000 ML IV SCH (03:36)
[2019-03-07 07:24] LABS: ANION GAP 7 (5-15); CALCIUM 7.6 mg/dL (8.4-11.0); CHLORIDE 107 mmol/L (98-107); CREATININE 2.74 mg/dL (0.55-1.30); GLUCOSE 383 mg/dL (70-99); POTASSIUM 5.4 mmol/L (3.5-5.1); SODIUM SERUM 135 mmol/L (136-145); UREA NITROGEN, BLOOD 45 mg/dL (8-21)
[2019-03-07] MEDS: OSELTAMIVIR PHOSPHATE 6 MG/1 ML, 60 ML SUSP PO SCH (09:00)
[2019-03-07] MEDS ORDERED: SODIUM POLYSTYRENE SULFONATE 15 GM/60 ML UDBTL PO ONE (10:15)
[2019-03-07] MEDS ORDERED: busPIRone HCL 5 MG TABLET PO PRN (10:15)
[2019-03-07] MEDS: CLOPIDOGREL BISULFATE 75 MG TABLET PO SCH (10:39)
[2019-03-07] MEDS: amLODIPine BESYLATE 5 MG TABLET PO SCH (10:39)
[2019-03-07] MEDS: ATORVASTATIN 10 MG TABLET PO SCH (10:40)
[2019-03-07] MEDS: PREDNISONE 10 MG TABLET PO SCH ×2 (10:40→20:09)
[2019-03-07] MEDS: BACLOFEN 10 MG TABLET PO SCH (10:40)
[2019-03-07] MEDS: guaiFENesin ER 600 MG TAB PO SCH ×2 (10:40→20:10)
[2019-03-07] MEDS: METOPROLOL SUCCINATE 25 MG TAB.SR.24H (TOPROL XL) PO SCH ×2 (10:41→20:09)
[2019-03-07 12:16] VITALS: BP_SYST 159
[2019-03-07 16:41] VITALS: BP_SYST 73
[2019-03-07] MEDS: HALOPERIDOL LACTATE 5 MG/ML VIAL IM PRN (19:06)
[2019-03-07] MEDS ORDERED: cefTRIAXone 1 GM IVPB PREMIX 50 ML IV SCH (20:00)
[2019-03-07] MEDS: traZODone HCL 50 MG TABLET (DESYREL) PO SCH (20:09)
[2019-03-07] MEDS: GABAPENTIN 300 MG CAPSULE PO SCH (20:09)
[2019-03-07 20:10] VITALS: BP_SYST 143
[2019-03-07] MEDS ORDERED: AZITHROMYCIN 500 MG in NS 250 ML IV SCH ×2 (21:00)
[2019-03-07] MEDS: HYDROcodone/ACETAMIN 10-325 MG TAB PO PRN (21:11)
[2019-03-08 00:11] VITALS: BP_SYST 158
[2019-03-08] MEDS: IPRATROPIUM BROM 0.5 MG/2.5 ML VIAL.NEB (ATROVENT) INH SCH ×2 (01:00→07:06)
[2019-03-08] MEDS: ALBUTEROL SULFATE 0.083% 2.5 MG/3 ML VIAL.NEB INH SCH ×2 (01:00→07:06)
[2019-03-08 10:00] VITALS: BP_SYST 146
[2019-03-08] MEDS ORDERED: PRED10TA PO (10:52)
[2019-03-08] MEDS ORDERED: ALBMDI INH (10:52)
[2019-03-08] MEDS ORDERED: AMOX-426 PO (10:53)
[2019-03-08] MEDS: CLOPIDOGREL BISULFATE 75 MG TABLET PO SCH (11:36)
[2019-03-08] MEDS: guaiFENesin ER 600 MG TAB PO SCH (11:36)
[2019-03-08] MEDS: ATORVASTATIN 10 MG TABLET PO SCH (11:36)
[2019-03-08] MEDS: METOPROLOL SUCCINATE 25 MG TAB.SR.24H (TOPROL XL) PO SCH (11:37)
[2019-03-08] MEDS: amLODIPine BESYLATE 5 MG TABLET PO SCH (11:37)
[2019-03-08] MEDS: PREDNISONE 10 MG TABLET PO SCH (11:37)
[2019-03-08] MEDS: BACLOFEN 10 MG TABLET PO SCH (11:38)
[2019-03-08 11:50] VITALS: BP_SYST 140
== END 2019-03-08 13:33 | disposition home or self-care (01) | DRG 871 ==
LOC: SED 21:55 → STU 03-02 01:17 → SMU 03-02 10:46 → STU 03-06 03:55
PROVIDERS: ADMIT Internal Medicine Hospice and Palliative Medicine; ATTEND Internal Medicine Hospice and Palliative Medicine
DX: A41.9 Sepsis, unspecified organism (principal); J18.9 Pneumonia, unspecified organism; N17.0 Acute kidney failure with tubular necrosis; G93.41 Metabolic encephalopathy; J96.21 Acute and chronic respiratory failure with hypoxia; J10.00 Influenza due to other identified influenza virus with unspecified type of pneumonia; J44.1 Chronic obstructive pulmonary disease with (acute) exacerbation; E46 Unspecified protein-calorie malnutrition; J44.0 Chronic obstructive pulmonary disease with (acute) lower respiratory infection; I69.351 Hemiplegia and hemiparesis following cerebral infarction affecting right dominant side; R65.20 Severe sepsis without septic shock; E11.22 Type 2 diabetes mellitus with diabetic chronic kidney disease; I12.9 Hypertensive chronic kidney disease with stage 1 through stage 4 chronic kidney disease, or unspecified chronic kidney disease; N18.3 Chronic kidney disease, stage 3 (moderate); F17.210 Nicotine dependence, cigarettes, uncomplicated; Z99.3 Dependence on wheelchair; Z87.820 Personal history of traumatic brain injury; Z87.01 Personal history of pneumonia (recurrent); Z68.29 Body mass index [BMI] 29.0-29.9, adult; Z79.899 Other long term (current) drug therapy
CPT/HCPCS: 36415; 36600; 70450-TC; 71045; 76770; 80048; 80053; 81000-TC; 82803-TC; 82962; 83605; 84156; 84166; 84484; 85007; 85025; 85027; 85610-TC; 85730-TC; 86710; 87040-TC; 87086; 93005; 93306; 94640; 94760; 96365; 96367; 99291; G9035; J0456; J0696; J1030; J1630; J2405; J7030; J7050; J7512; J7613; J7620